=== PATIENT | female | born 1980 | race African-American/Black ===

== ENCOUNTER 2017-07-04 13:18 | Emergency (ER) | payer OTHER ==
[~2017-07-04] VITALS: Ht 165.1 cm; Wt 144.2 kg
--- NOTE | ~2017-07-04 | CR181 ---
[facility] A Service of [facility] / [facility] RADIOLOGY TEXT RESULTS PATIENT: TOBIAS MARTINO LOCATION: [place] : [birth year] UNIT #: [id number] AGE: [address]: Xuan Dick APRN SEX: F ORDER DR: [id number] [facility] [address] [place], [place] [address] [id number] MR#: [id number] Acc #: [id number] NAME: TOBIAS MARTINO : 1980 SEX: F STUDY DATE/TIME: 07/04/2017 14:59 UNIT: CFTX ROOM: STUDY DESCRIPTION: CR Lumbar Spine 2 or 3 Views Attending Physician: Xuan Dick A.P.R.N. Ordering Physician: Johnny Mcclain M.D. Primary Care Physician: Natalio Carpenter M.D. MEDICAL IMAGING REPORT This report is preliminary unless electronic signature is present EXAM Three views lumbar spine DATE 07/04/2017 HISTORY Left lower back pain since yesterday. No known injury. COMPARISON None. FINDINGS No acute lumbar spine fracture or subluxation is seen. Facet arthropathy is present at L3-4 through L5-S1. There is moderate diminished disc height at L5-S1 with anterior osteophyte formation. Presumed fallopian tube occlusion devices are in place. No sacroiliac joint diastasis. No osteolytic or osteoblastic abnormality. IMPRESSION 1. Moderate diminished disc height at L5-S1 with anterior osteophyte formation and suspected mild facet arthropathy at L4-5 and L5-S1. 2. No acute lumbar spine findings. Dictated by... Laura Crar M.D. THIS IS AN ELECTRONICALLY VERIFIED REPORT Laura Carr M.D. at 07/07/2017 8:52 AM [facility] TD: 07/05/2017 03:46 [facility] A Service [facility] RADIOLOGY TEXT RESULTS PATIENT: TOBIAS MARTINO LOCATION: [place] : [birth year] UNIT #: [id number] AGE: [address]: Xuan Dick APRN SEX: F ORDER DR: JOB #: [id number] MEDICAL IMAGING REPORT Page 1 of 1 COPY
[2017-07-04 14:02] LABS: URINE SOURCE CLEAN CATCH
[2017-07-04 14:11] LABS: URINE APPEARANCE CLEAR; URINE BILIRUBIN NEG (NEG); URINE BLOOD NEG (NEG); URINE COLOR YELLOW; URINE GLUCOSE NEG (NEG); URINE KETONE NEG (NEG); URINE LEUKOCYTE ESTERASE 2+ (NEG); URINE NITRATE NEG (NEG); URINE PROTEIN NEG (NEG)
[2017-07-04 14:13] LABS: CULTURE INDICATED? YES; URBCS1 AUWI 0-2 /[HPF] (0-2); URINE BACTERIA AUWI 2+ (NEGATIVE); URINE SQUAMOUS EPITHELIAL CELL MOD /[HPF]
== END 2017-07-04 15:50 | disposition home or self-care (01) ==
LOC: CED 13:18 → CFTX 13:18
PROVIDERS: Nurse Practitioner
DX: M54.42 Lumbago with sciatica, left side (principal); Z88.2 Allergy status to sulfonamides
CPT/HCPCS: 72100; 81003; 84703; 87086; 96372; 99283; J1885; J2360